=== PATIENT | male | born 1975 | race Caucasian/White ===

== ENCOUNTER 2023-03-23 20:43 | Inpatient (IN) | payer OTHER ==
[~2023-03-23] VITALS: Ht 170.2 cm; Wt 89.3 kg
[2023-03-23 22:59] LABS: HEMATOCRIT 39.1 % (42.0-52.0); MEAN CORPUSCULAR HGB CONC 35.8 g/dl (32.0-36.5); MEAN CORPUSCULAR VOLUME 92.2 fl (80.0-96.0); PLATELET COUNT, AUTOMATED 249 10^3/uL (150-450); RED BLOOD COUNT 4.24 10^6/uL (4.30-6.10); WHITE BLOOD COUNT 8.2 10^3/uL (4.0-10.0)
[2023-03-23 23:05] LABS: ETHYL ALCOHOL (ETHANOL) 0.005 % (0.000-0.010)
[2023-03-23 23:06] LABS: SALICYLATE LEVEL < 3.0 MG/DL (<30)
[2023-03-23 23:07] LABS: ACETAMINOPHEN LEVEL < 2.0 UG/ML (10.0-20.0); ALBUMIN 3.7 G/DL (3.2-5.2); ALKALINE PHOSPHATASE 64 U/L (46-116); ALT/SGPT 23 U/L (7.0-40); AST/SGOT 12 U/L (<34); BILIRUBIN,DIRECT 0.2 MG/DL (<0.4); BILIRUBIN,TOTAL 0.6 MG/DL (0.3-1.2); BLOOD UREA NITROGEN 8 MG/DL (9-23); CARBON DIOXIDE LEVEL 26 MMOL/L (20-31); CHLORIDE LEVEL 106 MMOL/L (98-107); CREATININE FOR GFR 0.65 MG/DL (0.70-1.30); GLOMERULAR FILTRATION RATE > 60.0 (>60); GLUCOSE, FASTING 104 MG/DL (60-100); SODIUM LEVEL 139 MMOL/L (136-145); TOTAL PROTEIN 6.5 G/DL (5.7-8.2)
[2023-03-23 23:11] LABS: THYROID STIMULATING HORMONE 2.437 uIU/ML (0.55-4.78)
[2023-03-23 23:28] LABS: AMPHETAMINES LEVEL URINE NEGATIVE (NEGATIVE); BARBITURATES URINE NEGATIVE (NEGATIVE); BENZODIAZEPINES URINE NEGATIVE (NEGATIVE)
[2023-03-23 23:29] LABS: CANNABINOIDS URINE NEGATIVE (NEGATIVE); COCAINE METABOLITE URINE NEGATIVE (NEGATIVE); METHADONE URINE NEGATIVE (NEGATIVE); OPIATES URINE NEGATIVE (NEGATIVE); PHENCYCLIDINE URINE NEGATIVE (NEGATIVE)
[2023-03-24] MEDS ORDERED: ERGO500029 PO (02:16)
[2023-03-24] MEDS ORDERED: NYST-13 EXT (02:16)
[2023-03-24] MEDS ORDERED: NACCAP PO (02:16)
[2023-03-24] MEDS ORDERED: GLUT500C4 PO (02:16)
[2023-03-24] MEDS ORDERED: CYCL-707 PO (02:16)
[2023-03-24] MEDS ORDERED: CYAN50002 SL (02:16)
[2023-03-24] MEDS ORDERED: PREG50CA PO (02:16)
[2023-03-24] MEDS ORDERED: MELO15TA28 PO (02:16)
[2023-03-24] MEDS ORDERED: OMEG10002 PO (02:16)
[2023-03-24] MEDS ORDERED: ALPR1TAB6 PO (02:16)
[2023-03-24] MEDS ORDERED: HOME MED LIST COMPLETE! XX SCH (02:20)
[2023-03-24] MEDS ORDERED: ACETAMINOPHEN TAB 650MG DOSE (2X325MG) PO ONE (06:25)
[2023-03-24] MEDS ORDERED: PREGABALIN 50 MG CAP (LYRICA) PO SCH (09:00)
[2023-03-24] MEDS ORDERED: MELOXICAM (MOBIC) 7.5 MG TAB PO SCH (09:00)
[2023-03-24] MEDS: NICOTINE 14 MG/24 HR TRANSDERMAL TD SCH (09:00)
[2023-03-24] MEDS ORDERED: NICOTINE 21MG/24HR 1 EA TRANSDERMAL TD ONE (09:00)
[2023-03-24] MEDS ORDERED: OMEGA-3 1000MG CAPSULE PO SCH (09:00)
[2023-03-24] MEDS ORDERED: CYCLOBENZAPRINE 10MG TABLET PO PRN ×2 (10:40→13:15)
[2023-03-24] MEDS ORDERED: ACETAMINOPHEN TAB 650MG DOSE (2X325MG) PO PRN (12:55)
[2023-03-24] MEDS ORDERED: IBUPROFEN 400MG TAB PO PRN (12:55)
[2023-03-24] MEDS ORDERED: MAALOX 30 ML SUSP *UDC PO PRN (12:55)
[2023-03-24 14:28] VITALS: BP 128/83; TEMP 97.2; O2SAT 99
[2023-03-24 16:00] VITALS: BP 128/83
[2023-03-24] MEDS: PREGABALIN 50 MG CAP (LYRICA) PO SCH ×3 (16:00→21:00)
[2023-03-24] MEDS: diphenhydrAMINE 25MG CAP PO PRN ×2 (16:30→23:24)
[2023-03-24] MEDS: OMEGA-3 1000MG CAPSULE PO SCH (21:00)
[2023-03-24] MEDS ORDERED: ACETYLCYSTEINE 600 MG PO SCH (21:00)
[2023-03-24] MEDS: THIAMINE 100 MG TAB PO SCH (21:00)
[2023-03-24] MEDS ORDERED: ENTER DRUG NAME HERE (PATIENT'S OWN MED) PO SCH (21:00)
[2023-03-24] MEDS: traZODone 50 MG TAB PO PRN (23:24)
[2023-03-25] VITALS (7 sets, daily range): BP systolic 124–153; BP diastolic 75–91; TEMP 97.9–98; O2SAT 96
[2023-03-25] MEDS ORDERED: OLANZapine ORAL DISINTEGRATING TAB 5MG PO ONE (03:00)
[2023-03-25] MEDS: MULTIVITAMINS/MINERALS THERAP 1 TAB PO SCH (08:39)
[2023-03-25] MEDS: FOLIC ACID 1MG TAB PO SCH (08:39)
[2023-03-25] MEDS: OMEGA-3 1000MG CAPSULE PO SCH ×2 (08:39→22:19)
[2023-03-25] MEDS: MELOXICAM (MOBIC) 7.5 MG TAB PO SCH (08:39)
[2023-03-25] MEDS: THIAMINE 100 MG TAB PO SCH ×2 (08:39→22:19)
[2023-03-25] MEDS: PREGABALIN 50 MG CAP (LYRICA) PO SCH ×3 (08:40→22:19)
[2023-03-25] MEDS: VITAMIN D 50,000 UNITS CAPSULE (ERGOCALCIFEROL 1.25MG) PO SCH (08:40)
[2023-03-25] MEDS: NICOTINE 14 MG/24 HR TRANSDERMAL TD SCH (08:43)
[2023-03-25] MEDS ORDERED: OLANZapine ORAL DISINTEGRATING TAB 5MG PO PRN (14:10)
[2023-03-25] MEDS: SERTRALINE HCL 25 MG TABLET PO SCH (15:06)
[2023-03-25] MEDS: LORazepam 2 MG TAB PO PRN (16:13)
[2023-03-25] MEDS: PILL CUTTER 1 EACH XX PRN (16:48)
[2023-03-25] MEDS: NALTREXONE 50 MG TAB PO SCH (16:48)
[2023-03-26] VITALS (7 sets, daily range): BP systolic 120–160; BP diastolic 74–105; TEMP 97.4–98.4; O2SAT 96–100
[2023-03-26] MEDS: LORazepam 2 MG TAB PO PRN (06:53)
[2023-03-26] MEDS: NICOTINE 14 MG/24 HR TRANSDERMAL TD SCH (06:54)
[2023-03-26] MEDS: PILL CUTTER 1 EACH XX PRN (07:56)
[2023-03-26] MEDS: PREGABALIN 50 MG CAP (LYRICA) PO SCH ×3 (07:56→20:08)
[2023-03-26] MEDS: OMEGA-3 1000MG CAPSULE PO SCH ×2 (07:56→20:08)
[2023-03-26] MEDS: MULTIVITAMINS/MINERALS THERAP 1 TAB PO SCH (07:56)
[2023-03-26] MEDS: FOLIC ACID 1MG TAB PO SCH (07:56)
[2023-03-26] MEDS: NALTREXONE 50 MG TAB PO SCH (07:56)
[2023-03-26] MEDS: MELOXICAM (MOBIC) 7.5 MG TAB PO SCH (07:57)
[2023-03-26] MEDS: THIAMINE 100 MG TAB PO SCH ×2 (07:57→20:08)
[2023-03-26] MEDS: SERTRALINE HCL 25 MG TABLET PO SCH (07:58)
[2023-03-26] MEDS: traZODone 50 MG TAB PO PRN (21:16)
[2023-03-27 06:34] VITALS: BP 179/85
[2023-03-27 06:37] VITALS: BP 179/85; TEMP 97.8; O2SAT 97
[2023-03-27] MEDS: NALTREXONE 50 MG TAB PO SCH (07:50)
[2023-03-27] MEDS: NICOTINE 14 MG/24 HR TRANSDERMAL TD SCH (07:50)
[2023-03-27] MEDS: MULTIVITAMINS/MINERALS THERAP 1 TAB PO SCH (07:51)
[2023-03-27] MEDS: PILL CUTTER 1 EACH XX PRN (07:51)
[2023-03-27] MEDS: SERTRALINE HCL 25 MG TABLET PO SCH (07:52)
[2023-03-27] MEDS: PREGABALIN 50 MG CAP (LYRICA) PO SCH ×3 (07:52→20:46)
[2023-03-27] MEDS: THIAMINE 100 MG TAB PO SCH (07:52)
[2023-03-27] MEDS: OMEGA-3 1000MG CAPSULE PO SCH ×2 (07:52→20:46)
[2023-03-27] MEDS: FOLIC ACID 1MG TAB PO SCH (07:52)
[2023-03-27] MEDS: MELOXICAM (MOBIC) 7.5 MG TAB PO SCH (07:52)
[2023-03-27] MEDS: diphenhydrAMINE 25MG CAP PO PRN ×2 (15:47→23:18)
[2023-03-27 16:20] VITALS: BP 152/98; TEMP 98.9; O2SAT 97
[2023-03-27] MEDS: traZODone 50 MG TAB PO PRN (20:46)
[2023-03-27 21:53] VITALS: BP 152/98
[2023-03-28 06:34] VITALS: BP 165/65; TEMP 97.6; O2SAT 96
[2023-03-28] MEDS: MELOXICAM (MOBIC) 7.5 MG TAB PO SCH (08:11)
[2023-03-28] MEDS: PILL CUTTER 1 EACH XX PRN (08:12)
[2023-03-28] MEDS: NALTREXONE 50 MG TAB PO SCH (08:12)
[2023-03-28] MEDS: MULTIVITAMINS/MINERALS THERAP 1 TAB PO SCH (08:12)
[2023-03-28] MEDS: OMEGA-3 1000MG CAPSULE PO SCH ×2 (08:13→20:04)
[2023-03-28] MEDS: FOLIC ACID 1MG TAB PO SCH (08:13)
[2023-03-28] MEDS: PREGABALIN 50 MG CAP (LYRICA) PO SCH ×3 (08:13→20:04)
[2023-03-28] MEDS: NICOTINE 14 MG/24 HR TRANSDERMAL TD SCH (08:15)
[2023-03-28] MEDS ORDERED: SERTRALINE HCL 50 MG TAB PO SCH (09:00)
[2023-03-28 14:00] VITALS: BP 150/74
[2023-03-28 18:56] VITALS: BP 140/89; TEMP 97
[2023-03-28] MEDS: ARIPiprazole 2 MG TAB PO SCH (20:04)
[2023-03-28 22:00] VITALS: BP 140/89
[2023-03-29 06:23] VITALS: BP 140/80; TEMP 98.8; O2SAT 99
[2023-03-29 07:10] LABS: CHOLESTEROL RISK RATIO 4.1 (<5); HDL CHOLESTEROL 43.6 MG/DL (>40); LDL CHOLESTEROL 113.6 MG/DL (<100); NON-HDL-C 135.4 MG/DL
[2023-03-29] MEDS: SERTRALINE HCL 50 MG TAB PO SCH (08:39)
[2023-03-29] MEDS: PREGABALIN 50 MG CAP (LYRICA) PO SCH ×3 (08:40→20:13)
[2023-03-29] MEDS: MULTIVITAMINS/MINERALS THERAP 1 TAB PO SCH (08:40)
[2023-03-29] MEDS: NALTREXONE 50 MG TAB PO SCH (08:40)
[2023-03-29] MEDS: OMEGA-3 1000MG CAPSULE PO SCH ×2 (08:40→20:13)
[2023-03-29] MEDS: PILL CUTTER 1 EACH XX PRN (08:40)
[2023-03-29] MEDS: MELOXICAM (MOBIC) 7.5 MG TAB PO SCH (08:41)
[2023-03-29] MEDS: FOLIC ACID 1MG TAB PO SCH (08:41)
[2023-03-29] MEDS: NICOTINE 14 MG/24 HR TRANSDERMAL TD SCH (08:44)
[2023-03-29] MEDS ORDERED: MIRALAX *UNIT DOSE* 17GM PACKET PO PRN (11:15)
[2023-03-29 17:56] VITALS: BP 119/80; TEMP 98
[2023-03-29] MEDS: ARIPiprazole 2 MG TAB PO SCH (20:13)
[2023-03-30 06:03] VITALS: BP 129/80; TEMP 97.1; O2SAT 95
[2023-03-30] MEDS: MELOXICAM (MOBIC) 7.5 MG TAB PO SCH (08:57)
[2023-03-30] MEDS: NALTREXONE 50 MG TAB PO SCH (08:57)
[2023-03-30] MEDS: PILL CUTTER 1 EACH XX PRN (08:58)
[2023-03-30] MEDS: OMEGA-3 1000MG CAPSULE PO SCH ×2 (08:58→20:20)
[2023-03-30] MEDS: NICOTINE 14 MG/24 HR TRANSDERMAL TD SCH (08:59)
[2023-03-30] MEDS: PREGABALIN 50 MG CAP (LYRICA) PO SCH ×3 (08:59→20:20)
[2023-03-30] MEDS: SERTRALINE HCL 50 MG TAB PO SCH (09:00)
[2023-03-30] MEDS: MOM 30ML SUSPENSION UDC PO PRN (09:36)
[2023-03-30] MEDS: THIAMINE 100 MG TAB PO SCH ×2 (12:46→20:20)
[2023-03-30 18:22] VITALS: BP 137/83; TEMP 97.3
[2023-03-30] MEDS: ARIPiprazole 2 MG TAB PO SCH (20:20)
[2023-03-31] MEDS: THIAMINE 100 MG TAB PO SCH ×2 (08:57→20:19)
[2023-03-31] MEDS: PREGABALIN 50 MG CAP (LYRICA) PO SCH ×3 (08:57→20:19)
[2023-03-31] MEDS: NICOTINE 14 MG/24 HR TRANSDERMAL TD SCH (09:00)
[2023-03-31] MEDS: PILL CUTTER 1 EACH XX PRN (09:01)
[2023-03-31] MEDS: SERTRALINE HCL 50 MG TAB PO SCH (09:01)
[2023-03-31] MEDS: MELOXICAM (MOBIC) 7.5 MG TAB PO SCH (09:03)
[2023-03-31] MEDS: OMEGA-3 1000MG CAPSULE PO SCH ×2 (09:03→20:19)
[2023-03-31] MEDS: NALTREXONE 50 MG TAB PO SCH (09:04)
[2023-03-31] MEDS: NICOTINE 7 MG/24 HR TRANSDERMAL TD SCH (13:24)
[2023-03-31 18:51] VITALS: BP 150/83; TEMP 97
[2023-03-31] MEDS: ARIPiprazole 2 MG TAB PO SCH (20:19)
[2023-03-31] MEDS: MOM 30ML SUSPENSION UDC PO PRN (20:39)
[2023-04-01 06:34] VITALS: BP 132/84; TEMP 96.8; O2SAT 97
[2023-04-01] MEDS: MELOXICAM (MOBIC) 7.5 MG TAB PO SCH (08:53)
[2023-04-01] MEDS: NICOTINE 7 MG/24 HR TRANSDERMAL TD SCH (08:54)
[2023-04-01] MEDS: NALTREXONE 50 MG TAB PO SCH (08:54)
[2023-04-01] MEDS: VITAMIN D 50,000 UNITS CAPSULE (ERGOCALCIFEROL 1.25MG) PO SCH (08:55)
[2023-04-01] MEDS: OMEGA-3 1000MG CAPSULE PO SCH ×2 (08:55→20:14)
[2023-04-01] MEDS: PREGABALIN 50 MG CAP (LYRICA) PO SCH ×3 (08:57→20:13)
[2023-04-01] MEDS: THIAMINE 100 MG TAB PO SCH ×2 (08:57→20:13)
[2023-04-01] MEDS: SERTRALINE HCL 50 MG TAB PO SCH (08:58)
[2023-04-01] MEDS: PILL CUTTER 1 EACH XX PRN (08:58)
[2023-04-01 18:48] VITALS: BP 134/90; TEMP 97.3
[2023-04-01] MEDS: ARIPiprazole 2 MG TAB PO SCH (20:14)
[2023-04-02 06:22] VITALS: BP 139/76; TEMP 97.2; O2SAT 97
[2023-04-02] MEDS: OMEGA-3 1000MG CAPSULE PO SCH ×2 (08:52→21:19)
[2023-04-02] MEDS: PILL CUTTER 1 EACH XX PRN (08:52)
[2023-04-02] MEDS: SERTRALINE HCL 50 MG TAB PO SCH (08:52)
[2023-04-02] MEDS: NALTREXONE 50 MG TAB PO SCH (08:53)
[2023-04-02] MEDS: MELOXICAM (MOBIC) 7.5 MG TAB PO SCH (08:53)
[2023-04-02] MEDS: PREGABALIN 50 MG CAP (LYRICA) PO SCH ×3 (08:53→21:18)
[2023-04-02] MEDS: THIAMINE 100 MG TAB PO SCH ×2 (08:53→21:19)
[2023-04-02] MEDS: NICOTINE 7 MG/24 HR TRANSDERMAL TD SCH (08:54)
[2023-04-02 18:00] VITALS: BP 147/91; TEMP 97.6; O2SAT 97
[2023-04-02] MEDS: ARIPiprazole 2 MG TAB PO SCH (21:18)
[2023-04-03 06:28] VITALS: BP 120/75; TEMP 97.3; O2SAT 99
[2023-04-03] MEDS: NALTREXONE 50 MG TAB PO SCH (08:20)
[2023-04-03] MEDS: THIAMINE 100 MG TAB PO SCH ×2 (08:21→20:33)
[2023-04-03] MEDS: OMEGA-3 1000MG CAPSULE PO SCH ×2 (08:21→20:33)
[2023-04-03] MEDS: SERTRALINE HCL 50 MG TAB PO SCH (08:21)
[2023-04-03] MEDS: PREGABALIN 50 MG CAP (LYRICA) PO SCH ×3 (08:21→20:33)
[2023-04-03] MEDS: MELOXICAM (MOBIC) 7.5 MG TAB PO SCH (08:21)
[2023-04-03] MEDS: NICOTINE 7 MG/24 HR TRANSDERMAL TD SCH (08:22)
[2023-04-03] MEDS: PILL CUTTER 1 EACH XX PRN (08:22)
[2023-04-03] MEDS ORDERED: NICO7PA TD (12:26)
[2023-04-03] MEDS ORDERED: NALT50TA4 PO (12:26)
[2023-04-03] MEDS ORDERED: ABIL1TAB13 PO (12:26)
[2023-04-03] MEDS ORDERED: SERT50TA29 PO (12:26)
[2023-04-03] MEDS ORDERED: THIA100TA PO (12:26)
[2023-04-03 18:00] VITALS: BP 143/85; TEMP 96.8
[2023-04-03] MEDS: traZODone 50 MG TAB PO PRN (20:33)
[2023-04-03] MEDS: ARIPiprazole 2 MG TAB PO SCH (20:33)
[2023-04-04 06:01] VITALS: BP 102/67; TEMP 97; O2SAT 97
[2023-04-04] MEDS: OMEGA-3 1000MG CAPSULE PO SCH (07:35)
[2023-04-04] MEDS: PREGABALIN 50 MG CAP (LYRICA) PO SCH (07:35)
[2023-04-04] MEDS: PILL CUTTER 1 EACH XX PRN (07:35)
[2023-04-04] MEDS: NICOTINE 7 MG/24 HR TRANSDERMAL TD SCH (07:36)
[2023-04-04] MEDS: SERTRALINE HCL 50 MG TAB PO SCH (07:37)
[2023-04-04] MEDS: MELOXICAM (MOBIC) 7.5 MG TAB PO SCH (07:38)
[2023-04-04] MEDS: NALTREXONE 50 MG TAB PO SCH (07:38)
[2023-04-04] MEDS: THIAMINE 100 MG TAB PO SCH (07:39)
== END 2023-04-04 08:09 | disposition home or self-care (01) | DRG 881 ==
LOC: M ED 20:43 → M ED INP 03-24 12:51 → M PSY 03-24 14:23
PROVIDERS: ADMIT Student in an Organized Health Care Education/Training Program; ATTEND Student in an Organized Health Care Education/Training Program
DX: F32.A Depression, unspecified (principal); R45.851 Suicidal ideations; F17.200 Nicotine dependence, unspecified, uncomplicated; M17.11 Unilateral primary osteoarthritis, right knee; M47.9 Spondylosis, unspecified; M54.30 Sciatica, unspecified side; F10.26 Alcohol dependence with alcohol-induced persisting amnestic disorder; Z79.899 Other long term (current) drug therapy

== ENCOUNTER → 2024-06-12 | Outpatient (REF) ==
[~2024-06-12] MED LIST: ABIL1TAB13 PO; ALPR1TAB6 PO; CYAN50002 SL; CYCL-707 PO; ERGO500029 PO; GLUT500C4 PO; MELO15TA28 PO; NACCAP PO; NALT50TA4 PO; NICO7PA TD; NYST-13 EXT; OMEG10002 PO; PREG50CA PO; SERT50TA29 PO; THIA100TA PO
== END ==
LOC: M PLAIMG 15:01
PROVIDERS: ATTEND Internal Medicine
DX: M54.50 Low back pain, unspecified (principal); M25.551 Pain in right hip; M25.552 Pain in left hip